=== PATIENT | female | born 1965 ===

== ENCOUNTER 2024-07-17 17:38 | Inpatient (IN) ==
[2024-07-17] MEDS ORDERED: IOPAMIDOL 100 ML BOTTLE IV ONE (17:39)
[2024-07-17] MEDS: 0.9 % SODIUM CHLORIDE 1,000 ML IV ONE (18:05)
[2024-07-17 18:12] LABS: Basophils # (Auto) 0.01 K/mcL (0.00-0.30); Basophils % (Auto) 0.1 % (0.0-2.0); Eosinophils # (Auto) 0.01 K/mcL (0.00-0.70); Eosinophils % (Auto) 0.1 % (0.0-7.0); Hematocrit 42.4 % (34.1-44.9); Hemoglobin 14.7 g/dL (11.2-15.7); Lymphocytes # (Auto) 1.79 K/mcL (1.50-4.80); Lymphocytes % (Auto) 18.1 % (15.5-49.0); Mean Cell Volume 85.5 fL (80.0-100.0); Mean Corpuscular HGB Conc 34.7 g/dL (31.0-36.0); Mean Platelet Volume 10.8 fL (8.8-12.5); Monocytes # (Auto) 0.75 K/mcL (0.10-0.90); Monocytes % (Auto) 7.6 % (1.0-12.0); Neutrophils % (Auto) 73.8 % (38.0-78.0); Platelet Count 424 K/mcL (140-440); RBC 4.96 M/mcL (3.59-5.38); Red Cell Distribution Width 13.3 % (11.5-14.5); WBC 9.9 K/mcL (4.5-11.0)
[2024-07-17 18:29] LABS: ABG Methemoglobin 0.3 % (0.4-1.5); Total Hemoglobin 15.2 gm/Dl (12.0-15.0); VBG Base Excess 2 (-2-3); VBG HCO3 27.5 mmol/L (24.0-28.0); VBG Oxygen Saturation 74.1 % (40.0-70.0); VBG PCO2 44.5 mmHg (41.0-51.0); VBG PH 7.41 U (7.32-7.42); VBG Total CO2 28.9 mmol/L (25.0-29.0)
[2024-07-17] MEDS: BENZONATATE 100 MG CAPSULE PO ONE (18:37)
[2024-07-17 19:07] LABS: Free T4 (Free Thyroxine) 1.52 ng/dL (0.93-1.70); Thyroid Stimulating Hormone 1.46 uIU/mL (0.27-5.01)
[2024-07-17 19:08] LABS: Appearance,Urine Clear (Clear); Bacteria,Urine 0 /hpf (0); Bilirubin,Urine Negative (Negative); Color,Urine Yellow; Glucose,Urine (UA) >=1000 mg/dL (Negative); Ketones,Urine Negative (Negative); Leukocyte Esterase,Urine Negative /uL (Negative); Nitrate,Urine Negative (Negative); PH,Urine 5.5 (5.0-9.0); Protein,Urine Negative (Negative); Specific Gravity,Urine <= 1.005 (1.000-1.035); Urine Blood Small ery/mcL (Negative); Urine RBC 4 /hpf (0-3); Urine Squamous Epithelial Cell 0 /hpf (0-4); Urine WBC 1 /hpf (0-4); Urobilinogen,Urine Normal
[2024-07-17 19:26] LABS: ALT/SGPT 9 U/L (<40); AST/SGOT 16 U/L (<32); Albumin 3.6 gm/dL (3.2-5.2); Albumin/Globulin Ratio 0.9 (1.0-2.3); Alkaline Phosphatase 138 U/L (39-117); Bilirubin,Total 0.4 mg/dL (0.1-1.0); Blood Urea Nitrogen 32 mg/dL (6-20); Calcium 9.6 mg/dL (8.6-10.4); Carbon Dioxide 27 mmol/L (22-30); Chloride 79 mmol/L (96-108); Globulin 4.1 gm/dL (2.2-3.7); Glomerular Filtration Rate 62; Glucose 819 mg/dL (70-105); Potassium 4.3 mmol/L (3.3-5.1); Sodium 123 mmol/L (133-145)
[2024-07-17 20:35] LABS: Blood Urea Nitrogen 30 mg/dL (6-20); Calcium 8.8 mg/dL (8.6-10.4); Carbon Dioxide 28 mmol/L (22-30); Chloride 84 mmol/L (96-108); Glomerular Filtration Rate 81; Glucose 673 mg/dL (70-105); Potassium 3.9 mmol/L (3.3-5.1); Sodium 125 mmol/L (133-145)
[2024-07-17] MEDS: INSULIN LISPRO 1 UNIT/0.01 ML UNIT SQ STA (21:21)
[2024-07-17] MEDS: clonazePAM 1 MG TABLET SL ONE (21:27)
[2024-07-17] MEDS ORDERED: INSULIN REGULAR, HUMAN 50 UNIT in 0.9 % SODIUM CHLORIDE 99.5 ML IV SCH (22:30)
[2024-07-17] MEDS ORDERED: METOCLOPRAMIDE 10 MG/2 ML VIAL IV PRN (23:38)
[2024-07-17] MEDS ORDERED: ACETAMINOPHEN 325 MG TABLET PO PRN (23:38)
[2024-07-17] MEDS ORDERED: IPRATROPIUM/ALBUTEROL 3 ML AMPUL.NEB NEB PRN (23:38)
[2024-07-17] MEDS ORDERED: MAGNESIUM SULFATE 2 GM/50 ML BAG IV PRN (23:38)
[2024-07-17] MEDS ORDERED: POTASSIUM CHLORIDE 40 MEQ in DEXTROSE 5% IN WATER 500 ML IV PRN (23:38)
[2024-07-17] MEDS ORDERED: POTASSIUM CHLORIDE 20 MEQ TABLET PO PRN (23:38)
[2024-07-17] MEDS: INSULIN REGULAR, HUMAN 50 UNIT in 0.9 % SODIUM CHLORIDE 99.5 ML IV SCH (23:40)
[2024-07-18] MEDS: 0.9 % SODIUM CHLORIDE 250 ML IV SCH
[2024-07-18] MEDS: 0.9 % SODIUM CHLORIDE 1,000 ML IV SCH
[2024-07-18 00:20] LABS: Estimated Average Glucose(eAG) 326 mg/dL
[2024-07-18] MEDS: INSULIN REGULAR, HUMAN 1 UNIT/0.01 ML UNIT ONE ×3 (01:10→03:28)
[2024-07-18] MEDS: INSULIN REGULAR, HUMAN 1 UNIT/0.01 ML UNIT IV ONE ×4 (02:10→10:39)
[2024-07-18] MEDS: DEXTROSE 5%-1/2NS 1,000 ML IV SCH (04:12)
[2024-07-18] MEDS: ONDANSETRON 4 MG/2 ML VIAL ONE (04:35)
[2024-07-18] MEDS: ONDANSETRON 4 MG/2 ML VIAL IV PRN (04:36)
[2024-07-18 06:27] LABS: Basophils # (Auto) 0.01 K/mcL (0.00-0.30); Basophils % (Auto) 0.1 % (0.0-2.0); Eosinophils # (Auto) 0.09 K/mcL (0.00-0.70); Eosinophils % (Auto) 1.2 % (0.0-7.0); Hematocrit 38.7 % (34.1-44.9); Hemoglobin 13.4 g/dL (11.2-15.7); Lymphocytes # (Auto) 1.92 K/mcL (1.50-4.80); Lymphocytes % (Auto) 26.2 % (15.5-49.0); Mean Cell Volume 86.8 fL (80.0-100.0); Mean Corpuscular HGB Conc 34.6 g/dL (31.0-36.0); Mean Platelet Volume 10.1 fL (8.8-12.5); Monocytes # (Auto) 0.79 K/mcL (0.10-0.90); Monocytes % (Auto) 10.8 % (1.0-12.0); Neutrophils % (Auto) 61.6 % (38.0-78.0); Platelet Count 375 K/mcL (140-440); RBC 4.46 M/mcL (3.59-5.38); Red Cell Distribution Width 13.3 % (11.5-14.5); WBC 7.3 K/mcL (4.5-11.0)
[2024-07-18 07:24] LABS: ALT/SGPT 7 U/L (<40); AST/SGOT 15 U/L (<32); Albumin 3.3 gm/dL (3.2-5.2); Albumin/Globulin Ratio 0.9 (1.0-2.3); Alkaline Phosphatase 102 U/L (39-117); Bilirubin,Direct < 0.2 mg/dL (0-0.3); Bilirubin,Total 0.4 mg/dL (0.1-1.0); Blood Urea Nitrogen 22 mg/dL (6-20); Calcium 9.5 mg/dL (8.6-10.4); Carbon Dioxide 27 mmol/L (22-30); Chloride 94 mmol/L (96-108); Globulin 3.7 gm/dL (2.2-3.7); Glomerular Filtration Rate 106; Glucose 188 mg/dL (70-105); Lactate Dehydrogenase 154 U/L (135-225); Phosphorous 2.1 mg/dL (2.5-4.5); Potassium 2.8 mmol/L (3.3-5.1); Sodium 135 mmol/L (133-145); Triglycerides 159 mg/dL (<150); Uric Acid 9.8 mg/dL (2.5-8.0)
[2024-07-18] MEDS ORDERED: LORazepam 2 MG/ML VIAL IV PRN (08:06)
[2024-07-18] MEDS: POTASSIUM CHLORIDE 20 MEQ TABLET PO PRN (08:15)
[2024-07-18] MEDS: guaiFENesin/CODEINE 10 ML UDC PO PRN (09:27)
[2024-07-18] MEDS: POTASSIUM CHLORIDE 10 MEQ/100 ML BAG IV SCH (09:27)
[2024-07-18] MEDS: ENOXAPARIN 40 MG/0.4 ML SYRINGE SQ SCH (09:27)
[2024-07-18] MEDS ORDERED: DEXTROSE 31 GM ORAL.SUSP PO PRN (09:30)
[2024-07-18] MEDS ORDERED: DEXTROSE 50% 50 ML VIAL IV PRN (09:30)
[2024-07-18] MEDS: 0.9 % SODIUM CHLORIDE 1,000 ML IV ONE (10:27)
[2024-07-18] MEDS: INSULIN GLARGINE, HUMAN 1 UNIT/0.01 ML SQ SCH (10:39)
[2024-07-18] MEDS: POTASSIUM CHLORIDE 20 MEQ TABLET PO ONE (11:46)
[2024-07-18] MEDS: INSULIN LISPRO 1 UNIT/0.01 ML UNIT SQ SCH (12:05)
[2024-07-19 06:19] LABS: ALT/SGPT 6 U/L (<40); AST/SGOT 14 U/L (<32); Albumin 2.9 gm/dL (3.2-5.2); Albumin/Globulin Ratio 0.9 (1.0-2.3); Alkaline Phosphatase 87 U/L (39-117); Bilirubin,Direct 0.2 mg/dL (<0.3); Bilirubin,Total 0.4 mg/dL (0.1-1.0); Blood Urea Nitrogen 13 mg/dL (6-20); Calcium 8.8 mg/dL (8.6-10.4); Carbon Dioxide 24 mmol/L (22-30); Chloride 100 mmol/L (96-108); Globulin 3.2 gm/dL (2.2-3.7); Glomerular Filtration Rate 106; Glucose 278 mg/dL (70-105); Lactate Dehydrogenase 153 U/L (135-225); Phosphorous 2.1 mg/dL (2.5-4.5); Potassium 3.7 mmol/L (3.3-5.1); Sodium 136 mmol/L (133-145); Triglycerides 135 mg/dL (<150); Uric Acid 7.7 mg/dL (2.5-8.0)
[2024-07-19] MEDS: OMEPRAZOLE 20 MG CAPSULE PO SCH (07:22)
[2024-07-19] MEDS: INSULIN GLARGINE, HUMAN 1 UNIT/0.01 ML SQ SCH (08:47)
[2024-07-19] MEDS: PHOSPHORUS 250 MG TABLET PO SCH (08:47)
[2024-07-19] MEDS ORDERED: INSULIN GLARGINE, HUMAN 1 UNIT/0.01 ML SQ SCH (09:00)
[2024-07-19] MEDS ORDERED: methylPREDNISolone 1 PACKET TABLET PO SCH (10:45)
[2024-07-19] MEDS: METHYLPREDNISOLONE 4 MG TABLET PO STA (11:28)
[2024-07-19] MEDS: METOCLOPRAMIDE 10 MG/2 ML VIAL IV PRN (13:18)
[2024-07-19] MEDS: METHYLPREDNISOLONE 4 MG TABLET PO SCH ×2 (14:15→21:41)
[2024-07-20] MEDS: METHYLPREDNISOLONE 4 MG TABLET PO SCH (05:40)
== END 2024-07-20 08:10 | disposition home or self-care (01) | DRG 637 ==
LOC: ED 17:38 → ICU 23:35 → MEDSUR 07-19 19:22
PROVIDERS: ADMIT Internal Medicine; ATTEND Internal Medicine